=== PATIENT | female | born 1980 | race Caucasian/White ===

== ENCOUNTER → 2016-12-26 | Outpatient (CLI) | payer MEDICAID, OTHER ==
[~2016-12-26] MED LIST: CELE20TA PO; CLAR10CA3 PO; HYDR25T PO; MEDR15VL IM; OMEP20CA3 PO; TRAZ100T4 PO; TRAZ150T14 PO
--- NOTE | 2016-12-26 10:46 | REP ---
Right upper quadrant sonography: History: Hepatitis C. Comparison study: No comparison studies. Findings: Scanning through the right upper quadrant of the abdomen demonstrates a normal sized, thin-walled gallbladder without evidence of stone or polyp. Common bile duct is normal measuring 0.2 cm in greatest diameter. No focal liver lesion is seen. Liver size is normal. No pancreatic abnormality is observed. No right renal abnormality is seen. There is no evidence of ascites. The right kidney measures 12.4 x 4.7 x 3.8 cm. Impression: Negative right upper quadrant sonography. Signed by Jorge L Nieto MD 12/26/2016 10:38 A
[2016-12-28 14:11] LABS: ALT 18 IU/L (0-40); GGT 20 IU/L (0-60); HAPTOGLOBIN 82 mg/dL (34-200); NECROINFLAM SCORE 0.05 (0.00-0.17); NECROINFLAMM GRADE A0-No activity (.); TOTAL BILIRUBIN 0.3 mg/dL (0.0-1.2)
== END ==
LOC: M LAB 08:34
PROVIDERS: ATTEND Nurse Practitioner Adult Health
DX: B18.2 Chronic viral hepatitis C (principal)

== ENCOUNTER → 2017-01-28 | Outpatient (REF) | payer OTHER ==
[2017-01-28 12:09] LABS: ALBUMIN/GLOBULIN RATIO 1.33 (1.00-1.93); ALKALINE PHOSPHATASE 71 U/L (45-117); ALT/SGPT 24 U/L (12-78); AST/SGOT 26 U/L (15-37); BILIRUBIN,DIRECT 0.2 MG/DL (0.0-0.2); BILIRUBIN,TOTAL 0.7 MG/DL (0.2-1.0)
[2017-01-29 12:30] LABS: HEPATITIS B SURFACE ANTIBODY POSITIVE (POSITIVE)
[2017-01-30 14:14] LABS: HEPATITIS C QUANTITATION HCV Not Detected IU/mL (.)
== END ==
LOC: M SFHCPLAZ 08:54
PROVIDERS: ATTEND Internal Medicine Infectious Disease
DX: B19.20 Unspecified viral hepatitis C without hepatic coma (principal)

== ENCOUNTER 2017-07-29 09:39 | Emergency (ER) | payer OTHER ==
[~2017-07-29] VITALS: Ht 162.6 cm; Wt 64.5 kg
[~2017-07-29 09:39] MED LIST changes: +HYDR-3363 PO; -HYDR25T PO; +TRAZ-136 PO; -TRAZ100T4 PO; -TRAZ150T14 PO; +TRAZ1TAB14 PO
[2017-07-29] MEDS ORDERED: AUGMENTIN 875 MG TAB PO ONE (11:45)
[2017-07-29] MEDS ORDERED: AUGM875T28 PO (11:49)
[2017-07-29] MEDS ORDERED: MUCI600T37 PO (11:49)
[2017-07-29] MEDS ORDERED: ZOFR4TAB3 PO (11:49)
[2017-07-29] MEDS ORDERED: IBUP80TA PO (11:49)
[2017-07-29 11:59] VITALS: BP 127/82
== END 2017-07-29 12:15 | disposition home or self-care (01) ==
LOC: M ED 09:39
DX: J01.90 Acute sinusitis, unspecified (principal); R11.2 Nausea with vomiting, unspecified; F17.210 Nicotine dependence, cigarettes, uncomplicated; F33.9 Major depressive disorder, recurrent, unspecified; F41.9 Anxiety disorder, unspecified; Z79.3 Long term (current) use of hormonal contraceptives; Z88.8 Allergy status to other drugs, medicaments and biological substances

== ENCOUNTER → 2017-08-06 | Outpatient (CLI) | payer OTHER ==
[~2017-08-06] MED LIST changes: +AUGM875T28 PO; +IBUP80TA PO; +MUCI600T37 PO; +ZOFR4TAB3 PO
[2017-08-06 10:04] LABS: MEAN CORPUSCULAR HEMOGLOBIN 29.9 pg (27.0-33.0); MEAN CORPUSCULAR HGB CONC 33.5 g/dl (32.0-36.5); MEAN CORPUSCULAR VOLUME 89.2 fl (80.0-96.0); RED CELL DISTRIBUTION WIDTH 12.7 % (11.5-14.5); WHITE BLOOD COUNT 4.7 10^3/uL (4.0-10.0)
[2017-08-06 10:38] LABS: ALBUMIN 3.3 GM/DL (3.2-5.2); ALBUMIN/GLOBULIN RATIO 1.06 (1.00-1.93); ALKALINE PHOSPHATASE 71 U/L (45-117); ALT/SGPT 29 U/L (12-78); ANION GAP 7 MEQ/L (8-16); AST/SGOT 35 U/L (15-37); BILIRUBIN,TOTAL 0.2 MG/DL (0.2-1.0); BLOOD UREA NITROGEN 9 MG/DL (7-18); CALCIUM LEVEL 9.1 MG/DL (8.5-10.1); CARBON DIOXIDE LEVEL 24 MEQ/L (21-32); CHLORIDE LEVEL 109 MEQ/L (98-107); CREATININE FOR GFR 0.67 MG/DL (0.55-1.02); GLOMERULAR FILTRATION RATE > 60.0 (>60); GLUCOSE, FASTING 97 MG/DL (70-105); POTASSIUM SERUM 4.1 MEQ/L (3.5-5.1); SODIUM LEVEL 140 MEQ/L (136-145); TOTAL PROTEIN 6.4 GM/DL (6.4-8.2)
--- NOTE | 2017-08-06 19:39 | ECGEPIP ---
Stationary ECG Study [facility] Test Date: 2017-08-06 Pat Name: DEEPAK SCHMIDT Department: Room: - Gender: F Literary Agent: JERMAINE : 1980 Requested By: Ulises Alcaraz Order Number: [id number] Reading MD: Maame Whitaker Measurements Intervals [place] Rate: 71 P: 73 SC: 113 QRS: 73 QRSD: 98 T: 53 QT: 420 QTc: 459 Interpretive Statements SINUS RHYTHM WITH SHORT SC INTERVAL WITH OCCASIONAL SUPRAVENTRICULAR PREMATURE COMPLEXES RATE FASTER C/W 10/07/16 Electronically Signed On 08-06-2017 19:39:03 EDT by Maame Whitaker
== END ==
LOC: M LAB 09:06
PROVIDERS: ATTEND Family Medicine
DX: F11.20 Opioid dependence, uncomplicated (principal)

== ENCOUNTER 2017-09-17 14:06 | Emergency (ER) | payer OTHER ==
[~2017-09-17] VITALS: Ht 162.6 cm; Wt 66.8 kg
[2017-09-17] MEDS ORDERED: MIRT30TA3 PO (14:14)
[2017-09-17] MEDS ORDERED: DULO1CAP3 PO (14:14)
[2017-09-17] MEDS ORDERED: CLON0.1D3 PO (14:14)
[2017-09-17] MEDS ORDERED: METH40TA PO (14:14)
[2017-09-17] MEDS ORDERED: PANT40TA2 PO (14:14)
[2017-09-17] MEDS ORDERED: CLEO300C2 PO (15:19)
[2017-09-17 15:52] VITALS: BP 116/68
== END 2017-09-17 16:00 | disposition home or self-care (01) ==
LOC: M ED 14:06
DX: L02.413 Cutaneous abscess of right upper limb (principal); I51.9 Heart disease, unspecified; G43.909 Migraine, unspecified, not intractable, without status migrainosus; F17.200 Nicotine dependence, unspecified, uncomplicated; F19.10 Other psychoactive substance abuse, uncomplicated; Z79.899 Other long term (current) drug therapy; Z88.8 Allergy status to other drugs, medicaments and biological substances

== ENCOUNTER 2017-10-23 00:01 | Inpatient (IN) | payer OTHER ==
[2017-10-23 01:41] LABS: HEMATOCRIT 34.7 % (36.0-47.0); HEMOGLOBIN 11.6 g/dl (12.0-16.0); MEAN CORPUSCULAR HGB CONC 33.4 g/dl (32.0-36.5); MEAN CORPUSCULAR VOLUME 86.8 fl (80.0-96.0); PLATELET COUNT, AUTOMATED 288 10^3/uL (150-450); RED CELL DISTRIBUTION WIDTH 12.7 % (11.5-14.5); WHITE BLOOD COUNT 8.6 10^3/uL (4.0-10.0)
[2017-10-23 01:59] LABS: CONTROL LINE HCG INT CTR LINE PRESENT; HCG, SERUM QUALITATIVE NEGATIVE (NEGATIVE)
[2017-10-23 02:15] LABS: ACETAMINOPHEN LEVEL < 2.0 UG/ML (10.0-30.0); ALBUMIN 3.6 GM/DL (3.2-5.2); ALBUMIN/GLOBULIN RATIO 1.06 (1.00-1.93); ALKALINE PHOSPHATASE 72 U/L (45-117); ALT/SGPT 11 U/L (12-78); ANION GAP 9 MEQ/L (8-16); AST/SGOT 14 U/L (7-37); BILIRUBIN,DIRECT < 0.1 MG/DL (0.0-0.2); BILIRUBIN,TOTAL 0.4 MG/DL (0.2-1.0); BLOOD UREA NITROGEN 10 MG/DL (7-18); CALCIUM LEVEL 8.7 MG/DL (8.5-10.1); CARBON DIOXIDE LEVEL 25 MEQ/L (21-32); CHLORIDE LEVEL 107 MEQ/L (98-107); CREATININE FOR GFR 0.67 MG/DL (0.55-1.02); ETHYL ALCOHOL (ETHANOL) 0.003 % (0.000-0.010); GLOMERULAR FILTRATION RATE > 60.0 (>60); GLUCOSE, FASTING 86 MG/DL (70-105); POTASSIUM SERUM 3.9 MEQ/L (3.5-5.1); SALICYLATE LEVEL 3.3 MG/DL (5.0-30.0); SODIUM LEVEL 141 MEQ/L (136-145)
[2017-10-23 02:42] LABS: AMPHETAMINES LEVEL URINE POSITIVE (NEGATIVE); BARBITURATES URINE NEGATIVE (NEGATIVE); BENZODIAZEPINES URINE NEGATIVE (NEGATIVE); CANNABINOIDS URINE POSITIVE (NEGATIVE); COCAINE METABOLITE URINE POSITIVE (NEGATIVE); METHADONE URINE NEGATIVE (NEGATIVE); OPIATES URINE POSITIVE (NEGATIVE); PHENCYCLIDINE URINE NEGATIVE (NEGATIVE)
[2017-10-23] MEDS ORDERED: MAALOX 30 ML SUSP *UDC PO (03:15)
[2017-10-23] MEDS ORDERED: ACETAMINOPHEN TAB 650MG DOSE (2X325MG) PO (03:15)
[2017-10-23] MEDS ORDERED: traZODone 50 MG TAB PO (03:15)
[2017-10-23] MEDS ORDERED: LORazepam 2 MG TAB PO (03:15)
[2017-10-23] MEDS ORDERED: MOM 30ML SUSPENSION UDC PO (03:15)
[2017-10-23] MEDS: NICOTINE 21MG/24HR 1 EA TRANSDERMAL TD (08:26)
[2017-10-23] MEDS: FOLIC ACID 1 MG TAB PO (08:26)
[2017-10-23] MEDS: MULTIVITAMINS/MINERALS THERAP 1 TAB PO (08:26)
[2017-10-23] MEDS: THIAMINE 100 MG TAB PO ×2 (08:26→20:39)
[2017-10-23] MEDS: CEPHALEXIN 500 MG CAP PO ×4 (10:01→20:40)
[2017-10-23] MEDS: MUPIROCIN 2% OINT 22 GM TUBE TOP ×2 (10:02→20:40)
[2017-10-23] MEDS: METHADONE 10 MG TAB (S0109) PO ×2 (12:40→20:40)
[2017-10-23] MEDS: RAMELTEON 8 MG TAB (ROZEREM) PO (20:39)
[2017-10-24] MEDS: METHADONE 10 MG TAB (S0109) PO ×2 (08:06→20:45)
[2017-10-24] MEDS: THIAMINE 100 MG TAB PO ×2 (08:06→20:44)
[2017-10-24] MEDS: FOLIC ACID 1 MG TAB PO (08:06)
[2017-10-24] MEDS: CitaloPRAM (CeleXA) 20 MG TAB PO (08:06)
[2017-10-24] MEDS: DULoxetine 30 MG CAP (CYMBALTA) PO (08:06)
[2017-10-24] MEDS: MULTIVITAMINS/MINERALS THERAP 1 TAB PO (08:06)
[2017-10-24] MEDS: PANTOPRAZOLE 40MG TAB (PROTONIX) PO (08:06)
[2017-10-24] MEDS: NICOTINE 21MG/24HR 1 EA TRANSDERMAL TD (08:07)
[2017-10-24] MEDS: CEPHALEXIN 500 MG CAP PO ×4 (08:07→20:44)
[2017-10-24] MEDS: MUPIROCIN 2% OINT 22 GM TUBE TOP ×2 (08:08→20:45)
[2017-10-24] MEDS: cloNIDine 0.1 MG TAB PO ×3 (11:15→20:44)
[2017-10-24] MEDS: RAMELTEON 8 MG TAB (ROZEREM) PO (20:44)
[2017-10-25] MEDS: METHADONE 10 MG TAB (S0109) PO ×2 (08:45→21:11)
[2017-10-25] MEDS: cloNIDine 0.1 MG TAB PO ×3 (08:45→21:11)
[2017-10-25] MEDS: THIAMINE 100 MG TAB PO ×2 (08:45→21:11)
[2017-10-25] MEDS: PANTOPRAZOLE 40MG TAB (PROTONIX) PO (08:45)
[2017-10-25] MEDS: CitaloPRAM (CeleXA) 20 MG TAB PO (08:45)
[2017-10-25] MEDS: NICOTINE 21MG/24HR 1 EA TRANSDERMAL TD (08:45)
[2017-10-25] MEDS: CEPHALEXIN 500 MG CAP PO ×4 (08:45→21:11)
[2017-10-25] MEDS: MULTIVITAMINS/MINERALS THERAP 1 TAB PO (08:45)
[2017-10-25] MEDS: DULoxetine 30 MG CAP (CYMBALTA) PO (08:46)
[2017-10-25] MEDS: FOLIC ACID 1 MG TAB PO (08:46)
[2017-10-25] MEDS: MUPIROCIN 2% OINT 22 GM TUBE TOP ×2 (08:46→21:00)
[2017-10-25] MEDS: RAMELTEON 8 MG TAB (ROZEREM) PO (21:11)
[2017-10-26] MEDS: METHADONE 10 MG TAB (S0109) PO ×2 (08:46→21:03)
[2017-10-26] MEDS: NICOTINE 21MG/24HR 1 EA TRANSDERMAL TD (08:46)
[2017-10-26] MEDS: MUPIROCIN 2% OINT 22 GM TUBE TOP ×2 (08:47→21:02)
[2017-10-26] MEDS: PANTOPRAZOLE 40MG TAB (PROTONIX) PO (08:47)
[2017-10-26] MEDS: FOLIC ACID 1 MG TAB PO (08:47)
[2017-10-26] MEDS: CEPHALEXIN 500 MG CAP PO ×4 (08:47→21:03)
[2017-10-26] MEDS: cloNIDine 0.1 MG TAB PO ×3 (08:47→21:02)
[2017-10-26] MEDS: MULTIVITAMINS/MINERALS THERAP 1 TAB PO (08:47)
[2017-10-26] MEDS: CitaloPRAM (CeleXA) 20 MG TAB PO (08:47)
[2017-10-26] MEDS: DULoxetine 30 MG CAP (CYMBALTA) PO (08:47)
[2017-10-26] MEDS: RAMELTEON 8 MG TAB (ROZEREM) PO (21:03)
[2017-10-27] MEDS: METHADONE 10 MG TAB (S0109) PO ×2 (08:32→21:15)
[2017-10-27] MEDS: FOLIC ACID 1 MG TAB PO (08:32)
[2017-10-27] MEDS: PANTOPRAZOLE 40MG TAB (PROTONIX) PO (08:32)
[2017-10-27] MEDS: NICOTINE 21MG/24HR 1 EA TRANSDERMAL TD (08:32)
[2017-10-27] MEDS: MUPIROCIN 2% OINT 22 GM TUBE TOP ×2 (08:33→21:14)
[2017-10-27] MEDS: MULTIVITAMINS/MINERALS THERAP 1 TAB PO (08:33)
[2017-10-27] MEDS: CEPHALEXIN 500 MG CAP PO ×4 (08:33→21:16)
[2017-10-27] MEDS: cloNIDine 0.1 MG TAB PO ×3 (08:33→21:14)
[2017-10-27] MEDS: DULoxetine 30 MG CAP (CYMBALTA) PO (08:33)
[2017-10-27] MEDS: CitaloPRAM (CeleXA) 20 MG TAB PO (08:33)
[2017-10-27] MEDS: RAMELTEON 8 MG TAB (ROZEREM) PO (21:14)
[2017-10-28] MEDS: NICOTINE 21MG/24HR 1 EA TRANSDERMAL TD (08:08)
[2017-10-28] MEDS: cloNIDine 0.1 MG TAB PO ×3 (08:09→21:00)
[2017-10-28] MEDS: DULoxetine 30 MG CAP (CYMBALTA) PO (08:09)
[2017-10-28] MEDS: MULTIVITAMINS/MINERALS THERAP 1 TAB PO (08:09)
[2017-10-28] MEDS: METHADONE 10 MG TAB (S0109) PO (08:09)
[2017-10-28] MEDS: CitaloPRAM (CeleXA) 20 MG TAB PO (08:09)
[2017-10-28] MEDS: CEPHALEXIN 500 MG CAP PO ×4 (08:09→21:00)
[2017-10-28] MEDS: FOLIC ACID 1 MG TAB PO (08:09)
[2017-10-28] MEDS: PANTOPRAZOLE 40MG TAB (PROTONIX) PO (08:10)
[2017-10-28] MEDS: MUPIROCIN 2% OINT 22 GM TUBE TOP ×3 (10:58→21:01)
[2017-10-28] MEDS: RAMELTEON 8 MG TAB (ROZEREM) PO (21:00)
[2017-10-29] MEDS: NICOTINE 21MG/24HR 1 EA TRANSDERMAL TD (08:35)
[2017-10-29] MEDS: CitaloPRAM (CeleXA) 20 MG TAB PO (08:35)
[2017-10-29] MEDS: FOLIC ACID 1 MG TAB PO (08:35)
[2017-10-29] MEDS: DULoxetine 30 MG CAP (CYMBALTA) PO (08:35)
[2017-10-29] MEDS: cloNIDine 0.1 MG TAB PO ×3 (08:36→21:32)
[2017-10-29] MEDS: CEPHALEXIN 500 MG CAP PO ×4 (08:36→21:32)
[2017-10-29] MEDS: MULTIVITAMINS/MINERALS THERAP 1 TAB PO (08:36)
[2017-10-29] MEDS: PANTOPRAZOLE 40MG TAB (PROTONIX) PO (08:36)
[2017-10-29] MEDS: MUPIROCIN 2% OINT 22 GM TUBE TOP ×2 (09:00→21:00)
[2017-10-29] MEDS: METHADONE 10 MG TAB (S0109) PO (09:00)
[2017-10-29] MEDS: RAMELTEON 8 MG TAB (ROZEREM) PO (21:32)
[2017-10-30] MEDS: METHADONE 5 MG TAB (S0109) PO (08:24)
[2017-10-30] MEDS: DULoxetine 30 MG CAP (CYMBALTA) PO (08:25)
[2017-10-30] MEDS: CEPHALEXIN 500 MG CAP PO (08:25)
[2017-10-30] MEDS: FOLIC ACID 1 MG TAB PO (08:26)
[2017-10-30] MEDS: MULTIVITAMINS/MINERALS THERAP 1 TAB PO (08:27)
[2017-10-30] MEDS: cloNIDine 0.1 MG TAB PO (08:27)
[2017-10-30] MEDS: CitaloPRAM (CeleXA) 20 MG TAB PO (08:28)
[2017-10-30] MEDS: PANTOPRAZOLE 40MG TAB (PROTONIX) PO (08:29)
[2017-10-30] MEDS: MUPIROCIN 2% OINT 22 GM TUBE TOP (08:29)
[2017-10-30] MEDS: NICOTINE 21MG/24HR 1 EA TRANSDERMAL TD (09:00)
== END 2017-10-30 11:40 | disposition home or self-care (01) | DRG 755 ==
LOC: M ED 00:01 → M ED INP 03:01 → M PSY 03:30
DX: F43.10 Post-traumatic stress disorder, unspecified (principal); R45.851 Suicidal ideations; F60.3 Borderline personality disorder; F19.90 Other psychoactive substance use, unspecified, uncomplicated; Z79.899 Other long term (current) drug therapy; F17.210 Nicotine dependence, cigarettes, uncomplicated; K21.9 Gastro-esophageal reflux disease without esophagitis; Z88.8 Allergy status to other drugs, medicaments and biological substances

== ENCOUNTER 2018-04-15 13:18 | Inpatient (IN) | payer OTHER ==
[2018-04-15 14:54] LABS: HEMATOCRIT 34.9 % (36.0-47.0); HEMOGLOBIN 11.7 g/dl (12.0-15.5); MEAN CORPUSCULAR HEMOGLOBIN 29.2 pg (27.0-33.0); MEAN CORPUSCULAR HGB CONC 33.5 g/dl (32.0-36.5); PLATELET COUNT, AUTOMATED 280 10^3/uL (150-450); RED BLOOD COUNT 4.01 10^6/uL (4.00-5.40); RED CELL DISTRIBUTION WIDTH 11.4 % (11.5-14.5); WHITE BLOOD COUNT 5.9 10^3/uL (4.0-10.0)
[2018-04-15 15:29] LABS: CONTROL LINE HCG INT CTR LINE PRESENT; HCG, SERUM QUALITATIVE NEGATIVE (NEGATIVE)
[2018-04-15 15:31] LABS: AMPHETAMINES LEVEL URINE NEGATIVE (NEGATIVE); BARBITURATES URINE NEGATIVE (NEGATIVE); BENZODIAZEPINES URINE NEGATIVE (NEGATIVE); CANNABINOIDS URINE POSITIVE (NEGATIVE); COCAINE METABOLITE URINE POSITIVE (NEGATIVE); METHADONE URINE NEGATIVE (NEGATIVE); OPIATES URINE POSITIVE (NEGATIVE); PHENCYCLIDINE URINE NEGATIVE (NEGATIVE)
[2018-04-15 15:42] LABS: ALBUMIN 3.7 GM/DL (3.2-5.2); ALBUMIN/GLOBULIN RATIO 1.09 (1.00-1.93); ALKALINE PHOSPHATASE 70 U/L (45-117); ALT/SGPT 17 U/L (12-78); ANION GAP 7 MEQ/L (8-16); AST/SGOT 17 U/L (7-37); BILIRUBIN,DIRECT 0.1 MG/DL (0.0-0.2); BILIRUBIN,TOTAL 0.4 MG/DL (0.2-1.0); BLOOD UREA NITROGEN 9 MG/DL (7-18); CALCIUM LEVEL 8.2 MG/DL (8.5-10.1); CARBON DIOXIDE LEVEL 24 MEQ/L (21-32); CHLORIDE LEVEL 107 MEQ/L (98-107); CREATININE FOR GFR 0.88 MG/DL (0.55-1.30); ETHYL ALCOHOL (ETHANOL) < 0.003 % (0.000-0.010); GLOMERULAR FILTRATION RATE > 60.0 (>60); GLUCOSE, FASTING 83 MG/DL (70-100); SALICYLATE LEVEL 3.2 MG/DL (5.0-30.0); SODIUM LEVEL 138 MEQ/L (136-145); TOTAL PROTEIN 7.1 GM/DL (6.4-8.2)
[2018-04-15 15:51] LABS: ACETAMINOPHEN LEVEL < 2.0 UG/ML (10.0-30.0)
[2018-04-15] MEDS ORDERED: MOM 30ML SUSPENSION UDC PO (19:30)
[2018-04-15] MEDS ORDERED: MAALOX 30 ML SUSP *UDC PO (19:30)
[2018-04-15] MEDS ORDERED: ACETAMINOPHEN TAB 650MG DOSE (2X325MG) PO (19:30)
[2018-04-15] MEDS: traZODone 50 MG TAB PO (21:07)
[2018-04-15] MEDS: PRAZOSIN 1 MG CAP PO (21:08)
[2018-04-15] MEDS: METHADONE 5 MG TAB (S0109) PO (21:08)
[2018-04-16] MEDS: NICOTINE 21MG/24HR 1 EA TRANSDERMAL TD (09:00)
[2018-04-16] MEDS: METHADONE 5 MG TAB (S0109) PO ×2 (09:00→20:47)
[2018-04-16] MEDS: DULoxetine 30 MG CAP (CYMBALTA) PO (12:44)
[2018-04-16] MEDS: CitaloPRAM (CeleXA) 20 MG TAB PO (12:45)
[2018-04-16] MEDS: traZODone 50 MG TAB PO (20:47)
[2018-04-16] MEDS: PRAZOSIN 1 MG CAP PO (20:47)
[2018-04-16] MEDS: MIRTAZAPINE 15 MG TAB PO (20:47)
[2018-04-17] MEDS: METHADONE 5 MG TAB (S0109) PO ×2 (08:22→20:53)
[2018-04-17] MEDS: DULoxetine 30 MG CAP (CYMBALTA) PO (08:22)
[2018-04-17] MEDS: NICOTINE 21MG/24HR 1 EA TRANSDERMAL TD (08:23)
[2018-04-17] MEDS: CitaloPRAM (CeleXA) 20 MG TAB PO (08:23)
[2018-04-17] MEDS: PROPRANOLOL 10 MG TAB PO (12:04)
[2018-04-17] MEDS: PANTOPRAZOLE 40MG TAB (PROTONIX) PO (12:04)
[2018-04-17] MEDS: MIRTAZAPINE 15 MG TAB PO (20:53)
[2018-04-17] MEDS: LORATADINE 10 MG TAB PO (20:53)
[2018-04-17] MEDS: PRAZOSIN 1 MG CAP PO (20:55)
[2018-04-18] MEDS: NICOTINE 21MG/24HR 1 EA TRANSDERMAL TD (09:00)
[2018-04-18] MEDS: PANTOPRAZOLE 40MG TAB (PROTONIX) PO (09:27)
[2018-04-18] MEDS: DULoxetine 30 MG CAP (CYMBALTA) PO (09:27)
[2018-04-18] MEDS: PROPRANOLOL 10 MG TAB PO (09:29)
[2018-04-18] MEDS: METHADONE 5 MG TAB (S0109) PO ×2 (09:30→20:15)
[2018-04-18] MEDS: CitaloPRAM (CeleXA) 20 MG TAB PO (09:30)
[2018-04-18] MEDS: PRAZOSIN 1 MG CAP PO (20:15)
[2018-04-18] MEDS: LORATADINE 10 MG TAB PO (20:15)
[2018-04-18] MEDS: MIRTAZAPINE 15 MG TAB PO (20:15)
[2018-04-19] MEDS: DULoxetine 30 MG CAP (CYMBALTA) PO (08:06)
[2018-04-19] MEDS: METHADONE 5 MG TAB (S0109) PO ×2 (08:07→20:52)
[2018-04-19] MEDS: CitaloPRAM (CeleXA) 20 MG TAB PO (08:07)
[2018-04-19] MEDS: PANTOPRAZOLE 40MG TAB (PROTONIX) PO (08:08)
[2018-04-19] MEDS: PROPRANOLOL 10 MG TAB PO (08:08)
[2018-04-19] MEDS: NICOTINE 21MG/24HR 1 EA TRANSDERMAL TD (08:09)
[2018-04-19] MEDS: PRAZOSIN 1 MG CAP PO (20:52)
[2018-04-19] MEDS: MIRTAZAPINE 15 MG TAB PO (20:52)
[2018-04-19] MEDS: LORATADINE 10 MG TAB PO (20:52)
[2018-04-20] MEDS: NICOTINE 21MG/24HR 1 EA TRANSDERMAL TD (08:59)
[2018-04-20] MEDS: CitaloPRAM (CeleXA) 20 MG TAB PO (09:02)
[2018-04-20] MEDS: PANTOPRAZOLE 40MG TAB (PROTONIX) PO (09:03)
[2018-04-20] MEDS: PROPRANOLOL 10 MG TAB PO ×2 (09:03→20:36)
[2018-04-20] MEDS: DULoxetine 30 MG CAP (CYMBALTA) PO (09:03)
[2018-04-20] MEDS: METHADONE 5 MG TAB (S0109) PO ×2 (09:03→20:36)
[2018-04-20] MEDS: MIRTAZAPINE 15 MG TAB PO (20:36)
[2018-04-20] MEDS: LORATADINE 10 MG TAB PO (20:36)
[2018-04-20] MEDS: PRAZOSIN 1 MG CAP PO (20:37)
[2018-04-21] MEDS: NICOTINE 21MG/24HR 1 EA TRANSDERMAL TD (08:56)
[2018-04-21] MEDS: METHADONE 5 MG TAB (S0109) PO ×2 (08:58→21:18)
[2018-04-21] MEDS: PANTOPRAZOLE 40MG TAB (PROTONIX) PO (08:59)
[2018-04-21] MEDS: CitaloPRAM (CeleXA) 20 MG TAB PO (08:59)
[2018-04-21] MEDS: DULoxetine 30 MG CAP (CYMBALTA) PO (08:59)
[2018-04-21] MEDS: PROPRANOLOL 10 MG TAB PO ×2 (08:59→21:17)
[2018-04-21] MEDS: PRAZOSIN 1 MG CAP PO (21:18)
[2018-04-21] MEDS: LORATADINE 10 MG TAB PO (21:18)
[2018-04-21] MEDS: MIRTAZAPINE 15 MG TAB PO (21:18)
[2018-04-22] MEDS: METHADONE 5 MG TAB (S0109) PO (08:39)
[2018-04-22] MEDS: PANTOPRAZOLE 40MG TAB (PROTONIX) PO (08:40)
[2018-04-22] MEDS: NICOTINE 21MG/24HR 1 EA TRANSDERMAL TD (08:40)
[2018-04-22] MEDS: PROPRANOLOL 10 MG TAB PO ×2 (08:40→20:25)
[2018-04-22] MEDS: CitaloPRAM (CeleXA) 20 MG TAB PO (08:40)
[2018-04-22] MEDS: DULoxetine 30 MG CAP (CYMBALTA) PO (08:40)
[2018-04-22] MEDS: LORATADINE 10 MG TAB PO (20:24)
[2018-04-22] MEDS: PRAZOSIN 1 MG CAP PO (20:25)
[2018-04-22] MEDS: MIRTAZAPINE 15 MG TAB PO (20:26)
[2018-04-23] MEDS: DULoxetine 30 MG CAP (CYMBALTA) PO (08:10)
[2018-04-23] MEDS: CitaloPRAM (CeleXA) 20 MG TAB PO (08:10)
[2018-04-23] MEDS: PROPRANOLOL 10 MG TAB PO (08:11)
[2018-04-23] MEDS: PANTOPRAZOLE 40MG TAB (PROTONIX) PO (08:11)
[2018-04-23] MEDS: NICOTINE 21MG/24HR 1 EA TRANSDERMAL TD (08:12)
== END 2018-04-23 14:00 | disposition home or self-care (01) | DRG 751 ==
LOC: M ED 13:18 → M ED INP 16:17 → M PSY 18:15
DX: F33.9 Major depressive disorder, recurrent, unspecified (principal); F11.10 Opioid abuse, uncomplicated; F43.10 Post-traumatic stress disorder, unspecified; F19.94 Other psychoactive substance use, unspecified with psychoactive substance-induced mood disorder; F12.10 Cannabis abuse, uncomplicated; Z79.899 Other long term (current) drug therapy; B18.2 Chronic viral hepatitis C; K21.9 Gastro-esophageal reflux disease without esophagitis; G43.909 Migraine, unspecified, not intractable, without status migrainosus; F17.200 Nicotine dependence, unspecified, uncomplicated

== ENCOUNTER → 2020-07-31 | Outpatient (REF) | payer OTHER, MEDICAID ==
[~2020-07-31] MED LIST changes: +CELE40TA PO; +CEPH500C PO; +CLEO300C2 PO; +CLON0.1D3 PO; +DEPO150I IM; +DULO1CAP6 PO; +DULO30CA9 PO; +FOLI1TAB11 PO; +LORA10TA3 PO; +MEDR150I10 IM; -MEDR15VL IM; +METH40TA PO; +MINI1CAP PO; +MIRT15TA3 PO; +MIRT30TA3 PO; +MUPI2OI TOP; +NICO21PAT TD; +OMEP1CAP73 PO; -OMEP20CA3 PO; +PANT40TA29 PO; +PRAZ1CAP PO; +PROP10TA55 PO; +ROZE8TAB16 PO; -TRAZ-136 PO; +TRAZ-257 PO; +TRAZ1TAB10 PO; +VITMTA PO; +ZOFR4TAB14 PO; -ZOFR4TAB3 PO
== END ==
LOC: M SFHCWAGY 19:05
PROVIDERS: ATTEND Nurse Practitioner Women's Health
DX: Z12.4 Encounter for screening for malignant neoplasm of cervix (principal)

== ENCOUNTER → 2020-08-07 | Outpatient (CLI) | payer MEDICAID ==
--- NOTE | 2020-08-10 13:35 | REP ---
PELVIC SONOGRAPHY HISTORY: Fibroid uterus, history of right ovarian cyst. COMPARISON: Pelvic sonography 05/25/2015. SONOGRAPHIC FINDINGS: Transabdominal scanning demonstrates uterine dimensions of 8.9 x 2.9 x 3.8 cm. Endometrial echo is 0.3 cm thick. No focal uterine mass is appreciated. No free fluid is seen. Normal ovaries are seen bilaterally. Right ovarian dimensions are 3.1 x 1.4 x 1.5 cm. There is a 1.4 cm follicle in the right ovary. The left ovary measures 2.8 x 1.2 x 2.2 cm. Doppler flow is present bilaterally in the ovaries. Resistive indices are measured at 0.42 on the right and 0.56 on the left. IMPRESSION: Unremarkable pelvic sonography. MTDD
--- NOTE | 2020-09-08 13:49 | REPMRS ---
Patient History The patient states she had a clinical breast exam in July 2020. No known family history of cancer. Digital Woman Screen Mammo: August 07, 2020 - Exam #: [id number] Bilateral CC and MLO view(s) were taken. Technologist: Angle Peña, RT No prior studies available for comparison. FINDINGS: The breast tissue is heterogeneously dense. This may lower the sensitivity of mammography. The Volpara volumetric breast density category is: C. There is no evidence of dominant mass, architectural distortion, or grouped microcalcification typical of malignancy. 3-D tomosynthesis shows no additional findings. Assessment: BI-RADS/ACR category 1 mammogram. Negative Mammogram. Recommendation Routine screening mammogram of both breasts in 1 year (for women over age 40). This patient's Lifetime Breast Cancer RIsk is estimated at 8.7 %. This mammogram was interpreted with the aid of an FDA-approved computer-aided dectection system. Electronically Signed By: Sin Nieto MD 09/08/20 [id number]
== END ==
LOC: M WHC 13:24
PROVIDERS: ATTEND Nurse Practitioner Women's Health
DX: Z12.31 Encounter for screening mammogram for malignant neoplasm of breast (principal); Z87.42 Personal history of other diseases of the female genital tract

== ENCOUNTER → 2020-09-20 | Outpatient (CLI) | payer OTHER ==
[2020-09-20 09:10] LABS: BASO % 0.5 % (0.0-1.0); EOS # 0.1 10^3/uL (0.0-0.5); EOS % 1.4 % (0.0-3.0); HEMATOCRIT 36.8 % (36.0-47.0); HEMOGLOBIN 12.3 g/dl (12.0-15.5); LYMPH # 1.6 10^3/uL (1.5-5.0); LYMPH % 28.2 % (24.0-44.0); MEAN CORPUSCULAR HEMOGLOBIN 29.4 pg (27.0-33.0); MEAN CORPUSCULAR HGB CONC 33.4 g/dl (32.0-36.5); MONO # 0.4 10^3/uL (0.0-0.8); MONO % 7.7 % (0.0-5.0); NEUTROPHILS # 3.4 10^3/uL (1.5-8.5); PLATELET COUNT, AUTOMATED 246 10^3/uL (150-450); RED BLOOD COUNT 4.18 10^6/uL (4.00-5.40); WHITE BLOOD COUNT 5.6 10^3/uL (4.0-10.0)
[2020-09-20 09:33] LABS: ALBUMIN 3.7 GM/DL (3.2-5.2); ALT/SGPT 17 U/L (12-78); BILIRUBIN,TOTAL 0.6 MG/DL (0.2-1.0); BLOOD UREA NITROGEN 9 MG/DL (7-18); CARBON DIOXIDE LEVEL 24 MEQ/L (21-32); CHLORIDE LEVEL 107 MEQ/L (98-107); CREATININE FOR GFR 0.82 MG/DL (0.55-1.30); GLOMERULAR FILTRATION RATE > 60.0 (>58); GLUCOSE, FASTING 89 MG/DL (70-100); PHOSPHORUS LEVEL 3.5 MG/DL (2.5-4.9); SODIUM LEVEL 137 MEQ/L (136-145); TOTAL PROTEIN 6.9 GM/DL (6.4-8.2)
[2020-09-20 10:21] LABS: ERYTHROCYTE SEDIMENTATION RATE 12 mm/hr (0-20)
== END ==
LOC: M LAB 08:16
PROVIDERS: ATTEND Psychiatry & Neurology Child & Adolescent Psychiatry
DX: L51.1 Stevens-Johnson syndrome (principal)

== ENCOUNTER → 2020-10-12 | Outpatient (REF) | payer OTHER ==
[2020-10-12 13:48] LABS: APPEARANCE, URINE HAZY (CLEAR); BACTERIA, URINE AUTO NEGATIVE (NEGATIVE); BILIRUBIN, URINE AUTO NEGATIVE (NEGATIVE); BLOOD, URINE BLOOD 1+ (NEGATIVE); CALCIUM OXALATE CRYSTALS SMALL; COLOR, URINE YELLOW (YELLOW); GLUCOSE, URINE (UA) AUTO NEGATIVE (NEGATIVE); KETONE, URINE AUTO NEGATIVE (NEGATIVE); LEUKOCYTE ESTERASE, URINE AUTO NEGATIVE (NEGATIVE); NITRITE, URINE AUTO NEGATIVE (NEGATIVE); PROTEIN, URINE AUTO NEGATIVE (NEGATIVE); RBC, URINE AUTO 1 /HPF (0-3); SPECIFIC GRAVITY URINE AUTO 1.021 (1.002-1.035); SQUAMOUS EPITHELIAL CELL UR AU 4 /HPF (0-6); UROBILINOGEN, URINE AUTO 0.2 mg/dL (0.0-2.0); WBC, URINE AUTO 0 /HPF (0-3)
[2020-10-12 13:50] LABS: BASO % 0.5 % (0.0-1.0); EOS % 2.2 % (0.0-3.0); HEMATOCRIT 37.2 % (36.0-47.0); HEMOGLOBIN 12.2 g/dl (12.0-15.5); LYMPH # 1.5 10^3/uL (1.5-5.0); LYMPH % 24.4 % (24.0-44.0); MEAN CORPUSCULAR HEMOGLOBIN 29.9 pg (27.0-33.0); MEAN CORPUSCULAR HGB CONC 32.8 g/dl (32.0-36.5); MEAN CORPUSCULAR VOLUME 91.2 fl (80.0-96.0); MONO % 7.6 % (0.0-5.0); NEUTROPHILS # 3.9 10^3/uL (1.5-8.5); NEUTROPHILS % 65.1 % (36.0-66.0); PLATELET COUNT, AUTOMATED 269 10^3/uL (150-450); RED BLOOD COUNT 4.08 10^6/uL (4.00-5.40)
[2020-10-12 13:51] LABS: EOS # 0.1 10^3/uL (0.0-0.5); MONO # 0.5 10^3/uL (0.0-0.8)
[2020-10-12 14:05] LABS: ALBUMIN 3.5 GM/DL (3.2-5.2); ALT/SGPT 19 U/L (12-78); BILIRUBIN,TOTAL 0.2 MG/DL (0.2-1.0); BLOOD UREA NITROGEN 15 MG/DL (7-18); CALCIUM LEVEL 8.9 MG/DL (8.5-10.1); CARBON DIOXIDE LEVEL 28 MEQ/L (21-32); CHLORIDE LEVEL 104 MEQ/L (98-107); CHOLESTEROL LEVEL 164 MG/DL (<200); CHOLESTEROL RISK RATIO 3.489 (<5); CREATININE FOR GFR 0.73 MG/DL (0.55-1.30); FREE T4 0.98 NG/DL (0.76-1.46); GLOMERULAR FILTRATION RATE > 60.0 (>58); GLUCOSE, FASTING 87 MG/DL (70-100); HDL CHOLESTEROL 47 MG/DL (>40); LDL CHOLESTEROL 97 MG/DL (<100); NON-HDL-C 117 MG/DL; POTASSIUM SERUM 4.1 MEQ/L (3.5-5.1); SODIUM LEVEL 138 MEQ/L (136-145); TOTAL PROTEIN 6.7 GM/DL (6.4-8.2); TRIGLYCERIDES LEVEL 102 MG/DL (<150)
[2020-10-12 14:08] LABS: TOTAL 25(OH) VITAMIN D 25.3 NG/ML (30.0-100.0)
[2020-10-12 14:48] LABS: HIV 1&2 SCREEN CENTAUR NEGATIVE (NEGATIVE)
[2020-10-12 15:29] LABS: HEMOGLOBIN A1c 5.3 %
[2020-10-12 15:43] LABS: HEPATITIS C VIRUS ABY INDEX > 11.0 INDEX (<0.8)
== END ==
LOC: M LAB REF 12:40
PROVIDERS: ATTEND Nurse Practitioner Family
DX: Z00.00 Encounter for general adult medical examination without abnormal findings (principal); E66.9 Obesity, unspecified; F17.200 Nicotine dependence, unspecified, uncomplicated

== ENCOUNTER → 2020-12-15 | Outpatient (REF) | payer OTHER ==
[2020-12-15 12:25] LABS: APPEARANCE, URINE HAZY (CLEAR); BACTERIA, URINE AUTO 1+ (NEGATIVE); BILIRUBIN, URINE AUTO NEGATIVE (NEGATIVE); BLOOD, URINE BLOOD NEGATIVE (NEGATIVE); COLOR, URINE YELLOW (YELLOW); GLUCOSE, URINE (UA) AUTO NEGATIVE (NEGATIVE); KETONE, URINE AUTO TRACE mg/dL (NEGATIVE); LEUKOCYTE ESTERASE, URINE AUTO 2+ (NEGATIVE); MUCUS, URINE SMALL (NEGATIVE); NITRITE, URINE AUTO NEGATIVE (NEGATIVE); PROTEIN, URINE AUTO NEGATIVE (NEGATIVE); RBC, URINE AUTO 5 /HPF (0-3); SPECIFIC GRAVITY URINE AUTO 1.019 (1.002-1.035); SQUAMOUS EPITHELIAL CELL UR AU 4 /HPF (0-6); WBC, URINE AUTO 135 /HPF (0-3)
== END ==
LOC: M LAB REF 11:11
PROVIDERS: ATTEND Nurse Practitioner Family
DX: R35.0 Frequency of micturition (principal)

== ENCOUNTER 2021-05-20 08:18 | Emergency (ER) | payer MEDICAID, OTHER ==
[~2021-05-20] VITALS: Ht 162.6 cm; Wt 90.8 kg
[2021-05-20 08:22] VITALS: BP 132/72
[2021-05-20] MEDS ORDERED: QC A10TA PO (08:29)
[2021-05-20] MEDS ORDERED: VIST25CA PO (08:29)
== END 2021-05-20 09:44 | disposition left against medical advice (07) ==
LOC: M ED 08:18
DX: Z53.21 Procedure and treatment not carried out due to patient leaving prior to being seen by health care provider (principal)

== ENCOUNTER → 2021-09-24 | Outpatient (CLI) | payer OTHER, MEDICAID ==
[~2021-09-24] MED LIST changes: +OLAN1TAB16 PO; +QC A10TA PO; +VIST25CA PO
[2021-09-24 13:52] LABS: HCG, SERUM QUALITATIVE NEGATIVE (NEGATIVE)
== END ==
LOC: M PLALAB 10:19
PROVIDERS: ATTEND Advanced Practice Midwife
DX: Z87.59 Personal history of other complications of pregnancy, childbirth and the puerperium (principal)

== ENCOUNTER 2021-12-07 22:50 | Inpatient (IN) | payer OTHER, MEDICAID ==
[~2021-12-07] VITALS: Ht 162.6 cm; Wt 70.7 kg
[~2021-12-07 22:50] MED LIST changes: -OLAN1TAB16 PO
[2021-12-08] MEDS ORDERED: LORazepam 2 MG TAB PO ONE
[2021-12-08] MEDS ORDERED: OLANZapine 10 MG TAB PO ONE
[2021-12-08 00:40] LABS: HEMATOCRIT 39.9 % (36.0-47.0); HEMOGLOBIN 12.7 g/dl (12.0-15.5); MEAN CORPUSCULAR HEMOGLOBIN 30.1 pg (27.0-33.0); MEAN CORPUSCULAR HGB CONC 31.8 g/dl (32.0-36.5); MEAN CORPUSCULAR VOLUME 94.5 fl (80.0-96.0); PLATELET COUNT, AUTOMATED 266 10^3/uL (150-450); RED BLOOD COUNT 4.22 10^6/uL (4.00-5.40); WHITE BLOOD COUNT 6.7 10^3/uL (4.0-10.0)
[2021-12-08 01:05] LABS: HCG, SERUM QUALITATIVE NEGATIVE (NEGATIVE)
[2021-12-08 01:07] LABS: AMPHETAMINES LEVEL URINE POSITIVE (NEGATIVE); BARBITURATES URINE NEGATIVE (NEGATIVE); BENZODIAZEPINES URINE NEGATIVE (NEGATIVE); CANNABINOIDS URINE POSITIVE (NEGATIVE); COCAINE METABOLITE URINE NEGATIVE (NEGATIVE); METHADONE URINE NEGATIVE (NEGATIVE); OPIATES URINE NEGATIVE (NEGATIVE); PHENCYCLIDINE URINE NEGATIVE (NEGATIVE)
[2021-12-08 01:19] LABS: ACETAMINOPHEN LEVEL < 2.0 UG/ML (10.0-30.0); ALBUMIN 3.8 GM/DL (3.2-5.2); ALT/SGPT 19 U/L (12-78); BILIRUBIN,DIRECT 0.2 MG/DL (0.0-0.2); BILIRUBIN,TOTAL 0.5 MG/DL (0.2-1.0); BLOOD UREA NITROGEN 7 MG/DL (7-18); CARBON DIOXIDE LEVEL 23 MEQ/L (21-32); CHLORIDE LEVEL 109 MEQ/L (98-107); CREATININE FOR GFR 0.78 MG/DL (0.55-1.30); ETHYL ALCOHOL (ETHANOL) < 0.003 % (0.000-0.010); GLOMERULAR FILTRATION RATE > 60.0 (>58); GLUCOSE, FASTING 88 MG/DL (70-100); POTASSIUM SERUM 3.6 MEQ/L (3.5-5.1); SALICYLATE LEVEL 2.8 MG/DL (5.0-30.0); SODIUM LEVEL 140 MEQ/L (136-145)
[2021-12-08] MEDS ORDERED: HOME MED LIST COMPLETE! XX SCH (03:10)
[2021-12-08] MEDS ORDERED: MAALOX 30 ML SUSP *UDC PO PRN (10:45)
[2021-12-08] MEDS ORDERED: ACETAMINOPHEN TAB 650MG DOSE (2X325MG) PO PRN (10:45)
[2021-12-08] MEDS ORDERED: traZODone 50 MG TAB PO PRN (10:45)
[2021-12-08] MEDS ORDERED: MOM 30ML SUSPENSION UDC PO PRN (10:45)
[2021-12-09 06:57] VITALS: BP 120/70
[2021-12-09] MEDS: NICOTINE 21MG/24HR 1 EA TRANSDERMAL TD SCH (09:00)
[2021-12-09 18:57] VITALS: BP 134/75
[2021-12-09] MEDS ORDERED: PRAZOSIN 1 MG CAP PO SCH (21:00)
[2021-12-09] MEDS ORDERED: OLANZapine 5 MG TAB PO SCH (21:00)
[2021-12-10 07:19] VITALS: BP 134/75
[2021-12-10] MEDS: NICOTINE 21MG/24HR 1 EA TRANSDERMAL TD SCH (07:54)
[2021-12-10] MEDS ORDERED: MINI1CAP PO (10:25)
[2021-12-10] MEDS ORDERED: OLAN1TAB16 PO (10:25)
[2021-12-10] MEDS ORDERED: NICO21PAT TD (10:25)
== END 2021-12-10 12:25 | disposition home or self-care (01) | DRG 751 ==
LOC: M ED 22:50 → M ED INP 12-08 10:42 → OBSVTOIN 12-08 10:42 → M PSY 12-08 12:01
PROVIDERS: ADMIT Psychiatry & Neurology Psychiatry; ATTEND Psychiatry & Neurology Psychiatry
DX: F29 Unspecified psychosis not due to a substance or known physiological condition (principal); R45.851 Suicidal ideations; F43.10 Post-traumatic stress disorder, unspecified; F17.200 Nicotine dependence, unspecified, uncomplicated; F32.A Depression, unspecified; Z20.822 Contact with and (suspected) exposure to COVID-19; Z88.8 Allergy status to other drugs, medicaments and biological substances

== ENCOUNTER → 2022-01-28 | Outpatient (REF) | payer OTHER, MEDICAID ==
[~2022-01-28] MED LIST changes: +OLAN1TAB16 PO
[2022-01-28 17:04] LABS: GC DNA AMPLIFICATION NEGATIVE (NEGATIVE)
== END ==
LOC: M SFHCWAGY 15:10
PROVIDERS: ATTEND Specialist
DX: Z12.4 Encounter for screening for malignant neoplasm of cervix (principal); Z20.2 Contact with and (suspected) exposure to infections with a predominantly sexual mode of transmission; R87.610 Atypical squamous cells of undetermined significance on cytologic smear of cervix (ASC-US)

== ENCOUNTER 2022-04-01 07:54 | Inpatient (IN) | payer OTHER ==
[~2022-04-01] VITALS: Ht 162.6 cm; Wt 74.8 kg
[~2022-04-01 07:54] MED LIST changes: +GNPTAB37 PO; -QC A10TA PO
[2022-04-01] MEDS ORDERED: OLANZapine ORAL DISINTEGRATING TAB 5MG PO ONE (09:00)
[2022-04-01 10:15] LABS: HEMATOCRIT 40.2 % (36.0-47.0); HEMOGLOBIN 13.7 g/dl (12.0-15.5); MEAN CORPUSCULAR HEMOGLOBIN 30.5 pg (27.0-33.0); MEAN CORPUSCULAR HGB CONC 34.1 g/dl (32.0-36.5); MEAN CORPUSCULAR VOLUME 89.5 fl (80.0-96.0); PLATELET COUNT, AUTOMATED 273 10^3/uL (150-450); RED BLOOD COUNT 4.49 10^6/uL (4.00-5.40); WHITE BLOOD COUNT 7.1 10^3/uL (4.0-10.0)
[2022-04-01 10:46] LABS: HCG, SERUM QUALITATIVE NEGATIVE (NEGATIVE)
[2022-04-01 10:50] LABS: ACETAMINOPHEN LEVEL < 2.0 UG/ML (10.0-30.0); ALBUMIN 3.9 GM/DL (3.2-5.2); ALT/SGPT 14 U/L (12-78); BILIRUBIN,DIRECT 0.2 MG/DL (0.0-0.2); BILIRUBIN,TOTAL 0.4 MG/DL (0.2-1.0); BLOOD UREA NITROGEN 11 MG/DL (7-18); CALCIUM LEVEL 9.8 MG/DL (8.5-10.1); CARBON DIOXIDE LEVEL 25 MEQ/L (21-32); CHLORIDE LEVEL 112 MEQ/L (98-107); CREATININE FOR GFR 0.91 MG/DL (0.55-1.30); ETHYL ALCOHOL (ETHANOL) < 0.003 % (0.000-0.010); GLOMERULAR FILTRATION RATE > 60.0 (>58); GLUCOSE, FASTING 77 MG/DL (70-100); POTASSIUM SERUM 3.6 MEQ/L (3.5-5.1); SALICYLATE LEVEL 4.4 MG/DL (5.0-30.0); SODIUM LEVEL 143 MEQ/L (136-145); TOTAL PROTEIN 7.4 GM/DL (6.4-8.2)
[2022-04-01 10:52] LABS: RSV AMPLIFICATION NEGATIVE (NEGATIVE)
[2022-04-01 11:10] LABS: AMPHETAMINES LEVEL URINE POSITIVE (NEGATIVE); BARBITURATES URINE NEGATIVE (NEGATIVE); BENZODIAZEPINES URINE NEGATIVE (NEGATIVE); CANNABINOIDS URINE POSITIVE (NEGATIVE); COCAINE METABOLITE URINE NEGATIVE (NEGATIVE); METHADONE URINE NEGATIVE (NEGATIVE); OPIATES URINE NEGATIVE (NEGATIVE); PHENCYCLIDINE URINE NEGATIVE (NEGATIVE)
[2022-04-01] MEDS ORDERED: PRAZ1CAP PO (16:24)
[2022-04-01] MEDS ORDERED: OLAN1TAB16 PO (16:24)
[2022-04-01] MEDS ORDERED: COMMENTS (16:24)
[2022-04-01] MEDS ORDERED: HOME MED LIST COMPLETE! XX SCH (16:25)
[2022-04-02] MEDS ORDERED: LORazepam 2 MG TAB PO STA (07:52)
[2022-04-02] MEDS: NICOTINE 21MG/24HR 1 EA TRANSDERMAL TD SCH (09:00)
[2022-04-02] MEDS ORDERED: MAALOX 30 ML SUSP *UDC PO PRN (13:10)
[2022-04-02] MEDS ORDERED: diphenhydrAMINE 25MG CAP PO PRN (13:10)
[2022-04-02] MEDS ORDERED: IBUPROFEN 400MG TAB PO PRN (13:10)
[2022-04-02] MEDS ORDERED: MOM 30ML SUSPENSION UDC PO PRN (13:10)
[2022-04-02] MEDS ORDERED: traZODone 50 MG TAB PO PRN (13:10)
[2022-04-02 14:43] VITALS: BP 106/67
[2022-04-02] MEDS: OLANZapine ORAL DISINTEGRATING TAB 5MG PO PRN (15:19)
[2022-04-02] MEDS ORDERED: PRAZOSIN 1 MG CAP PO SCH (21:00)
[2022-04-02] MEDS ORDERED: OLANZapine 5 MG TAB PO SCH (21:00)
[2022-04-02] MEDS: PRAZOSIN 1 MG CAP PO SCH (21:41)
[2022-04-02] MEDS: OLANZapine 5 MG TAB PO SCH (21:43)
[2022-04-03 06:17] VITALS: BP 144/81
[2022-04-03] MEDS: OLANZapine ORAL DISINTEGRATING TAB 5MG PO PRN (08:32)
[2022-04-03] MEDS: NICOTINE 21MG/24HR 1 EA TRANSDERMAL TD SCH (08:34)
[2022-04-03] MEDS ORDERED: LORazepam 2 MG TAB PO STA (11:07)
[2022-04-03] MEDS: CETIRIZINE (ZyrTEC) 10 MG TAB PO SCH (11:12)
[2022-04-03] MEDS: OMEPRAZOLE 20MG CAP PO SCH (11:13)
[2022-04-03] MEDS: OLANZapine 5 MG TAB PO SCH (22:20)
[2022-04-03] MEDS: PRAZOSIN 1 MG CAP PO SCH (22:20)
[2022-04-04 07:18] VITALS: BP 92/52
[2022-04-04] MEDS: CETIRIZINE (ZyrTEC) 10 MG TAB PO SCH (08:11)
[2022-04-04] MEDS: OLANZapine ORAL DISINTEGRATING TAB 5MG PO PRN (08:11)
[2022-04-04] MEDS: OMEPRAZOLE 20MG CAP PO SCH (08:11)
[2022-04-04] MEDS: NICOTINE 21MG/24HR 1 EA TRANSDERMAL TD SCH (08:41)
[2022-04-04] MEDS: OLANZapine 5 MG TAB PO SCH ×2 (09:37→21:33)
[2022-04-04] MEDS ORDERED: LORazepam 2 MG TAB PO ONE (13:05)
[2022-04-04 21:35] VITALS: BP 124/68
[2022-04-04] MEDS: PRAZOSIN 1 MG CAP PO SCH (21:35)
[2022-04-05 07:09] VITALS: BP 96/52
[2022-04-05] MEDS: OLANZapine ORAL DISINTEGRATING TAB 5MG PO PRN (07:48)
[2022-04-05] MEDS: OMEPRAZOLE 20MG CAP PO SCH (07:48)
[2022-04-05] MEDS: CETIRIZINE (ZyrTEC) 10 MG TAB PO SCH (07:48)
[2022-04-05] MEDS: OLANZapine 5 MG TAB PO SCH (07:48)
[2022-04-05] MEDS: NICOTINE 21MG/24HR 1 EA TRANSDERMAL TD SCH (07:51)
[2022-04-05] MEDS ORDERED: PRAZ2CAP PO (08:55)
[2022-04-05] MEDS ORDERED: NICO21PAT TD (08:55)
[2022-04-05] MEDS ORDERED: CETI10TA PO (08:55)
[2022-04-05] MEDS ORDERED: OMEP-173 PO (08:55)
[2022-04-05] MEDS ORDERED: ZYPR10TA PO (08:55)
== END 2022-04-05 11:13 | disposition home or self-care (01) | DRG 751 ==
LOC: M ED 07:54 → M ED INP 04-02 13:14 → M PSY 04-02 14:33
PROVIDERS: ADMIT Student in an Organized Health Care Education/Training Program; ATTEND Psychiatry & Neurology Psychiatry
DX: F29 Unspecified psychosis not due to a substance or known physiological condition (principal); R45.851 Suicidal ideations; F43.10 Post-traumatic stress disorder, unspecified; F17.210 Nicotine dependence, cigarettes, uncomplicated; F32.A Depression, unspecified; Z20.822 Contact with and (suspected) exposure to COVID-19; Z88.8 Allergy status to other drugs, medicaments and biological substances; Z79.899 Other long term (current) drug therapy; K21.9 Gastro-esophageal reflux disease without esophagitis

== ENCOUNTER 2022-07-09 13:04 | Emergency (ER) | payer OTHER ==
[~2022-07-09] VITALS: Ht 162.6 cm; Wt 77.4 kg
[~2022-07-09 13:04] MED LIST changes: +CETI10TA PO; +COMMENTS; +OMEP-173 PO; +PRAZ2CAP PO; +ZYPR10TA PO
[2022-07-09 13:05] VITALS: BP 124/76
[2022-07-09] MEDS ORDERED: PRAZ2CAP PO (15:47)
[2022-07-09] MEDS ORDERED: ZYPR10TA PO (15:47)
== END 2022-07-09 16:01 | disposition home or self-care (01) ==
LOC: M ED 13:04
DX: Z76.0 Encounter for issue of repeat prescription (principal); F41.9 Anxiety disorder, unspecified; Z79.899 Other long term (current) drug therapy; Z88.8 Allergy status to other drugs, medicaments and biological substances

== ENCOUNTER 2022-08-24 18:40 | Emergency (ER) | payer OTHER ==
[~2022-08-24] VITALS: Ht 162.6 cm; Wt 79.4 kg
[2022-08-24 20:24] LABS: HEMOGLOBIN 12.1 g/dl (12.0-15.5); MEAN CORPUSCULAR HEMOGLOBIN 30.3 pg (27.0-33.0); MEAN CORPUSCULAR HGB CONC 33.6 g/dl (32.0-36.5); PLATELET COUNT, AUTOMATED 299 10^3/uL (150-450); WHITE BLOOD COUNT 6.6 10^3/uL (4.0-10.0)
[2022-08-24 20:57] LABS: RSV AMPLIFICATION NEGATIVE (NEGATIVE)
[2022-08-24 21:04] LABS: AMPHETAMINES LEVEL URINE POSITIVE (NEGATIVE); BARBITURATES URINE NEGATIVE (NEGATIVE); BENZODIAZEPINES URINE NEGATIVE (NEGATIVE); CANNABINOIDS URINE POSITIVE (NEGATIVE); COCAINE METABOLITE URINE NEGATIVE (NEGATIVE); METHADONE URINE NEGATIVE (NEGATIVE); OPIATES URINE NEGATIVE (NEGATIVE); PHENCYCLIDINE URINE NEGATIVE (NEGATIVE)
[2022-08-24 21:10] LABS: ACETAMINOPHEN LEVEL < 2.0 UG/ML (10.0-30.0); ALBUMIN 3.7 GM/DL (3.2-5.2); ALT/SGPT 26 U/L (12-78); BILIRUBIN,DIRECT 0.1 MG/DL (0.0-0.2); BILIRUBIN,TOTAL 0.3 MG/DL (0.2-1.0); BLOOD UREA NITROGEN 8 MG/DL (7-18); CALCIUM LEVEL 9.3 MG/DL (8.5-10.1); CARBON DIOXIDE LEVEL 26 MEQ/L (21-32); CHLORIDE LEVEL 107 MEQ/L (98-107); ETHYL ALCOHOL (ETHANOL) < 0.003 % (0.000-0.010); GLOMERULAR FILTRATION RATE > 60.0 (>58); GLUCOSE, FASTING 92 MG/DL (70-100); POTASSIUM SERUM 3.6 MEQ/L (3.5-5.1); SALICYLATE LEVEL 3.8 MG/DL (5.0-30.0); SODIUM LEVEL 139 MEQ/L (136-145); TOTAL PROTEIN 7.2 GM/DL (6.4-8.2)
[2022-08-25] MEDS ORDERED: OLANZapine 10 MG TAB PO ONE (01:10)
[2022-08-25] MEDS ORDERED: PRAZ2CAP PO (05:41)
[2022-08-25] MEDS ORDERED: OMEP1CAP73 PO (05:41)
[2022-08-25] MEDS ORDERED: VITA200031 PO (05:41)
[2022-08-25] MEDS ORDERED: OLAN1TAB20 PO (05:41)
[2022-08-25] MEDS ORDERED: CETI-24 PO (05:41)
[2022-08-25] MEDS ORDERED: med rec comment (05:42)
[2022-08-25] MEDS ORDERED: HOME MED LIST COMPLETE! XX SCH (05:45)
[2022-08-25 09:14] LABS: HCG, SERUM QUALITATIVE NEGATIVE (NEGATIVE)
[2022-08-25] MEDS ORDERED: BENZOCAINE 10% 9GM TUBE (ANBESOL) TOP PRN (12:55)
[2022-08-25] MEDS ORDERED: ACETAMINOPHEN TAB 650MG DOSE (2X325MG) PO ONE (14:10)
[2022-08-25] MEDS ORDERED: POLYSPORIN TOPICAL OINTMENT 15GM TOP ONE (17:05)
[2022-08-25 19:40] VITALS: BP 119/72
== END 2022-08-25 19:56 ==
LOC: M ED 18:40
DX: F29 Unspecified psychosis not due to a substance or known physiological condition (principal); Z88.8 Allergy status to other drugs, medicaments and biological substances; Z79.899 Other long term (current) drug therapy

== ENCOUNTER → 2023-02-20 | Outpatient (REF) | payer OTHER ==
[~2023-02-20] MED LIST changes: +CETI-24 PO; +OLAN1TAB20 PO; +VITA200031 PO; +med rec comment
[2023-02-20 17:21] LABS: ALBUMIN 4.2 G/DL (3.2-5.2); ALKALINE PHOSPHATASE 64 U/L (46-116); ALT/SGPT 20 U/L (7.0-40); AST/SGOT 24 U/L (<34); BILIRUBIN,TOTAL 0.5 MG/DL (0.3-1.2); BLOOD UREA NITROGEN 7 MG/DL (9-23); CALCIUM LEVEL 9.8 MG/DL (8.5-10.1); CARBON DIOXIDE LEVEL 26 MMOL/L (20-31); CHLORIDE LEVEL 106 MMOL/L (98-107); GLOMERULAR FILTRATION RATE > 60.0 (>58); GLUCOSE, FASTING 80 MG/DL (60-100); SODIUM LEVEL 140 MMOL/L (136-145); TOTAL PROTEIN 7.6 G/DL (5.7-8.2)
[2023-02-20 17:23] LABS: THYROID STIMULATING HORMONE 1.878 uIU/ML (0.55-4.78)
[2023-02-20 17:37] LABS: HEMOGLOBIN A1c 4.9 % (4.0-6.0)
== END ==
LOC: M LAB REF 16:47
PROVIDERS: ATTEND Nurse Practitioner Family
DX: E66.9 Obesity, unspecified (principal); Z68.30 Body mass index [BMI] 30.0-30.9, adult

== ENCOUNTER → 2023-08-01 | Outpatient (REF) | payer OTHER ==
[~2023-08-01] MED LIST changes: -MEDR150I10 IM; +MEDR150I13 IM
== END ==
LOC: M LAB REF 15:00
PROVIDERS: ATTEND Nurse Practitioner Family
DX: R19.7 Diarrhea, unspecified (principal)

== ENCOUNTER 2023-08-05 10:11 | Emergency (ER) | payer OTHER, SELFPAY ==
[~2023-08-05] VITALS: Ht 162.6 cm; Wt 88.9 kg
[2023-08-05 12:01] VITALS: BP 152/98; TEMP 97.8; O2SAT 97
[2023-08-05 12:06] LABS: URINE PREG TEST NEGATIVE (NEGATIVE)
[2023-08-05 12:11] LABS: APPEARANCE, URINE HAZY (CLEAR); BACTERIA, URINE AUTO NEGATIVE (NEGATIVE); BILIRUBIN, URINE AUTO NEGATIVE (NEGATIVE); BLOOD, URINE BLOOD NEGATIVE (NEGATIVE); COLOR, URINE AMBER (YELLOW); GLUCOSE, URINE (UA) AUTO NEGATIVE (NEGATIVE); KETONE, URINE AUTO TRACE mg/dL (NEGATIVE); LEUKOCYTE ESTERASE, URINE AUTO TRACE (NEGATIVE); MUCUS, URINE SMALL (NEGATIVE); NITRITE, URINE AUTO NEGATIVE (NEGATIVE); PROTEIN, URINE AUTO 1+ mg/dL (NEGATIVE); RBC, URINE AUTO 3 /HPF (0-3); SPECIFIC GRAVITY URINE AUTO 1.024 (1.002-1.035); SQUAMOUS EPITHELIAL CELL UR AU 11 /HPF (0-6); WBC, URINE AUTO 2 /HPF (0-3)
[2023-08-05] MEDS ORDERED: ONDANSETRON 4MG ORAL DISINTEGRATING TAB PO ONE (12:20)
== END 2023-08-05 13:07 | disposition home or self-care (01) ==
LOC: M ED 10:11
DX: F41.9 Anxiety disorder, unspecified (principal); G43.909 Migraine, unspecified, not intractable, without status migrainosus; N83.209 Unspecified ovarian cyst, unspecified side; K21.9 Gastro-esophageal reflux disease without esophagitis; Z88.8 Allergy status to other drugs, medicaments and biological substances; Z79.899 Other long term (current) drug therapy

== ENCOUNTER 2023-08-21 09:39 | Emergency (ER) | payer OTHER, SELFPAY ==
[~2023-08-21] VITALS: Ht 162.6 cm; Wt 87.7 kg
[2023-08-21] MEDS ORDERED: PANTOPRAZOLE 40MG VIAL IV ONE (11:50)
[2023-08-21] MEDS ORDERED: ONDANSETRON 4MG 2ML VIAL IV ONE (11:50)
[2023-08-21] MEDS ORDERED: HYOSCYAMINE SULFATE 0.125 MG SUBL TABLET PO ONE (11:50)
[2023-08-21] MEDS ORDERED: NS 1,000 ML IV ONE (11:50)
[2023-08-21] MEDS ORDERED: MAALOX 30 ML SUSP *UDC PO ONE (11:50)
[2023-08-21] MEDS ORDERED: SUCRALFATE 1 GM TAB PO ONE (11:50)
[2023-08-21 12:25] LABS: BASO % 0.4 % (0.0-1.0); EOS % 0.4 % (0.0-3.0); HEMATOCRIT 37.1 % (36.0-47.0); HEMOGLOBIN 12.8 g/dl (12.0-15.5); LYMPH # 2.1 10^3/uL (1.5-5.0); MEAN CORPUSCULAR HEMOGLOBIN 30.6 pg (27.0-33.0); MEAN CORPUSCULAR HGB CONC 34.5 g/dl (32.0-36.5); MEAN CORPUSCULAR VOLUME 88.8 fl (80.0-96.0); MONO # 0.5 10^3/uL (0.0-0.8); MONO % 6.6 % (2.0-8.0); NEUTROPHILS # 4.7 10^3/uL (1.5-8.5); NEUTROPHILS % 64.2 % (36.0-66.0); PLATELET COUNT, AUTOMATED 280 10^3/uL (150-450); RED BLOOD COUNT 4.18 10^6/uL (4.00-5.40); WHITE BLOOD COUNT 7.4 10^3/uL (4.0-10.0)
[2023-08-21 12:58] LABS: ALBUMIN 3.8 G/DL (3.2-5.2); BILIRUBIN,DIRECT 0.2 MG/DL (<0.4); BILIRUBIN,TOTAL 0.4 MG/DL (0.3-1.2); TOTAL PROTEIN 6.9 G/DL (5.7-8.2)
[2023-08-21] MEDS: GASTROGRAFIN SOLUTION 30ML PO SCH ×2 (13:26→14:01)
[2023-08-21] MEDS ORDERED: ISOVUE-370 76% 100ML VIAL As Ordered ONE (14:24)
[2023-08-21] MEDS ORDERED: NICOTINE 21MG/24HR 1 EA TRANSDERMAL TD ONE (14:45)
[2023-08-21] MEDS ORDERED: PROT1TAB2 PO (15:38)
[2023-08-21] MEDS ORDERED: PROM25TA12 PO (15:38)
[2023-08-21] MEDS ORDERED: CARA1TAB6 PO (15:38)
[2023-08-21] MEDS ORDERED: DICY-61 PO (15:38)
[2023-08-21 15:48] VITALS: BP 133/89; TEMP 99.4; O2SAT 97
== END 2023-08-21 15:54 | disposition home or self-care (01) ==
LOC: M ED 09:39
DX: R10.9 Unspecified abdominal pain (principal); R19.7 Diarrhea, unspecified; R11.0 Nausea; K21.9 Gastro-esophageal reflux disease without esophagitis; Z88.8 Allergy status to other drugs, medicaments and biological substances; Z79.83 Long term (current) use of bisphosphonates; Z79.810 Long term (current) use of selective estrogen receptor modulators (SERMs); Z79.891 Long term (current) use of opiate analgesic; Z79.899 Other long term (current) drug therapy
CPT/HCPCS: 74177; 80047; 80076; 83690; 84702; 85025; 96361; 96374; 99284; C9113; J2405; Q9963; Q9967

== ENCOUNTER → 2023-09-17 | Day surgery (SDC) | payer OTHER ==
[~2023-09-17] VITALS: Ht 162.6 cm; Wt 87.5 kg
[~2023-09-17] MED LIST changes: +CARA1TAB6 PO; +DICY-61 PO; +LIDOCAINE 2% 100MG/5ML SDV (FOR ANES.) As Ordered ONE; +NS 1,000 ML IV ONE; +PROM25TA12 PO; +PROT1TAB2 PO; +fentaNYL 100 MCG/2 ML INJECTION As Ordered ONE; +propofoL 200 MG/20 ML VIAL As Ordered ONE
[2023-09-17 14:08] VITALS: BP 150/86; TEMP 97.1; O2SAT 97
== END | disposition home or self-care (01) ==
LOC: M OPP 11:30
PROVIDERS: ATTEND Surgery
DX: K29.71 Gastritis, unspecified, with bleeding (principal); K21.9 Gastro-esophageal reflux disease without esophagitis; Z79.899 Other long term (current) drug therapy; F17.210 Nicotine dependence, cigarettes, uncomplicated; Z88.8 Allergy status to other drugs, medicaments and biological substances
CPT/HCPCS: 43239; 88305; J3010

== ENCOUNTER → 2024-01-12 | Outpatient (CLI) | payer OTHER ==
[~2024-01-12] MED LIST changes: -LIDOCAINE 2% 100MG/5ML SDV (FOR ANES.) As Ordered ONE; -NS 1,000 ML IV ONE; -fentaNYL 100 MCG/2 ML INJECTION As Ordered ONE; -propofoL 200 MG/20 ML VIAL As Ordered ONE
== END ==
LOC: M RAD 08:44
PROVIDERS: ATTEND Surgery
DX: R10.11 Right upper quadrant pain (principal); K82.4 Cholesterolosis of gallbladder

== ENCOUNTER 2024-04-06 12:03 | Emergency (ER) | payer OTHER ==
[~2024-04-06] VITALS: Ht 162.6 cm; Wt 81.3 kg
[2024-04-06 13:29] LABS: BASO # 0.1 10^3/uL (0.0-0.2); BASO % 0.7 % (0.0-1.0); EOS # 0.1 10^3/uL (0.0-0.5); EOS % 1.3 % (0.0-3.0); HEMATOCRIT 38.5 % (36.0-47.0); HEMOGLOBIN 13.1 g/dl (12.0-15.5); LYMPH # 2.6 10^3/uL (1.5-5.0); MEAN CORPUSCULAR HEMOGLOBIN 29.9 pg (27.0-33.0); MEAN CORPUSCULAR VOLUME 87.9 fl (80.0-96.0); MONO # 0.6 10^3/uL (0.0-0.8); MONO % 7.3 % (2.0-8.0); NEUTROPHILS # 4.3 10^3/uL (1.5-8.5); NEUTROPHILS % 56.3 % (36.0-66.0); PLATELET COUNT, AUTOMATED 243 10^3/uL (150-450); RED BLOOD COUNT 4.38 10^6/uL (4.00-5.40); WHITE BLOOD COUNT 7.6 10^3/uL (4.0-10.0)
[2024-04-06 13:46] LABS: ALBUMIN 3.8 G/DL (3.2-5.2); BILIRUBIN,DIRECT 0.2 MG/DL (<0.4); BILIRUBIN,TOTAL 0.4 MG/DL (0.3-1.2); TOTAL PROTEIN 6.7 G/DL (5.7-8.2)
[2024-04-06] MEDS ORDERED: CIPR-249 PO (14:57)
[2024-04-06] MEDS ORDERED: PYRI1TAB5 PO (14:57)
[2024-04-06 15:10] VITALS: BP 119/72; TEMP 98.3; O2SAT 98
== END 2024-04-06 15:15 | disposition home or self-care (01) ==
LOC: M ED 12:03
DX: N11.0 Nonobstructive reflux-associated chronic pyelonephritis (principal); N34.1 Nonspecific urethritis; Z88.8 Allergy status to other drugs, medicaments and biological substances; Z87.42 Personal history of other diseases of the female genital tract; Z79.2 Long term (current) use of antibiotics; Z79.83 Long term (current) use of bisphosphonates; Z79.899 Other long term (current) drug therapy

== ENCOUNTER → 2024-08-18 | Outpatient (REF) | payer OTHER ==
[~2024-08-18] MED LIST changes: +CIPR-249 PO; +PYRI1TAB5 PO
== END ==
LOC: M LAB REF 13:23
PROVIDERS: ATTEND Nurse Practitioner Family
DX: J02.9 Acute pharyngitis, unspecified (principal)

== ENCOUNTER → 2025-05-31 | Outpatient (REF) | payer OTHER ==
[2025-05-31 16:49] LABS: BASO # 0.0 10^3/uL (0.0-0.2); BASO % 0.7 % (0.0-1.0); EOS # 0.1 10^3/uL (0.0-0.5); EOS % 2.1 % (0.0-3.0); LYMPH # 2.0 10^3/uL (1.5-5.0); LYMPH % 32.7 % (24.0-44.0); MONO # 0.5 10^3/uL (0.0-0.8); MONO % 7.8 % (2.0-8.0); NEUTROPHILS # 3.4 10^3/uL (1.5-8.5); NEUTROPHILS % 56.5 % (36.0-66.0); PLATELET COUNT, AUTOMATED 238 10^3/uL (150-450)
[2025-05-31 16:52] LABS: ALT/SGPT 14.0 U/L (7.0-40); AST/SGOT 24.0 U/L (<34); CALCIUM LEVEL 9.3 MG/DL (8.5-10.1); CARBON DIOXIDE LEVEL 24.0 MMOL/L (20-31); CHLORIDE LEVEL 108.0 MMOL/L (98-107); CHOLESTEROL LEVEL 182.0 MG/DL (<200); CHOLESTEROL RISK RATIO 3.58 (<5); CREATININE FOR GFR 0.83 MG/DL (0.55-1.30); GLOMERULAR FILTRATION RATE 88.0 (>58); LDL CHOLESTEROL 119.1 MG/DL (<100); NON-HDL-C 131.3 MG/DL; POTASSIUM SERUM 4.2 MMOL/L (3.5-5.1); SODIUM LEVEL 143.0 MMOL/L (136-145); TRIGLYCERIDES LEVEL 61.0 MG/DL (<150)
[2025-05-31 16:57] LABS: ESTIMATED AVERAGE GLUCOSE 94.0 MG/DL (60-110)
== END ==
LOC: M LAB REF 16:26
PROVIDERS: ATTEND Nurse Practitioner Family
DX: Z68.30 Body mass index [BMI] 30.0-30.9, adult (principal); E66.9 Obesity, unspecified; F17.200 Nicotine dependence, unspecified, uncomplicated

== ENCOUNTER → 2025-08-16 | Outpatient (REF) | payer OTHER ==
[2025-08-19 08:28] LABS: HPV APTIMA Not Detected (Not Detected)
== END ==
LOC: M LAB REF 16:18
PROVIDERS: ATTEND Nurse Practitioner Family
DX: Z12.4 Encounter for screening for malignant neoplasm of cervix (principal)